=== PATIENT | female | born 1975 | race Caucasian/White ===

== ENCOUNTER → 2020-09-08 08:20 | Outpatient (BNVA) | payer MEDICAID, SELFPAY | PROVIDERS: PCP Family Medicine; Visit Provider Dietitian, Registered | DX: Z76.89 Persons encountering health services in other specified circumstances (principal) ==

== ENCOUNTER → 2020-09-18 07:35 | Outpatient (BNVA) | payer MEDICAID, SELFPAY | PROVIDERS: PCP Family Medicine; Referring Provider Family Medicine; Visit Provider Dietitian, Registered | DX: Z76.89 Persons encountering health services in other specified circumstances (principal) ==

== ENCOUNTER → 2020-10-09 08:14 | Outpatient (BNVA) | payer MEDICAID, SELFPAY | PROVIDERS: PCP Family Medicine; Visit Provider Dietitian, Registered | DX: Z76.89 Persons encountering health services in other specified circumstances (principal) ==

== ENCOUNTER 2020-11-07 15:21 | Outpatient (REF) | payer MEDICAID, SELFPAY ==
[2020-11-07 15:52] LABS: MANUAL DIFF FLAG NO
[2020-11-07 16:03] LABS: Basophils Absolute Auto 0.1 X10*3/uL (0.0-0.2); Basophils Percent Auto 1.2 % (0-2); Eosinophils Absolute Auto 0.2 X10*3/uL (0.0-0.4); Eosinophils Percent Auto 2.9 % (0-4); Hematocrit 44.8 % (37-47); Hemoglobin 14.8 g/dl (12.0-16.0); Imm Gran Abs Auto 0.02 X10*3/uL (0.00-0.03); Imm Gran Pct Auto 0.3 % (0.0-0.4); Lymphocytes Absolute Auto 1.9 X10*3/uL (1.2-4.9); Lymphocytes Percent Auto 31.3 % (20-40); Mean Corpuscular Hemoglobin 31.7 pg (27.0-33.0); Mean Corpuscular Volume 95.9 fL (80-98); Mean Platelet Volume 10.5 fL (9.4-12.3); Monocytes Absolute Auto 0.4 X10*3/uL (0.1-1.2); Monocytes Percent Auto 6.6 % (2-11); Neutrophils Absolute Auto 3.4 X10*3/uL (2.0-8.3); Neutrophils Percent Auto 57.7 % (45-73); Platelet Count 318 X10*3/uL (160-400); Red Blood Count 4.67 X10*6/uL (4.20-5.50); Red Cell Distribution Width 12.5 % (11.0-16.0); White Blood Count 5.9 X10*3/uL (4.8-10.8)
[2020-11-07 16:11] LABS: Estimated Average Glucose 94 mg/dL; Hemoglobin A1c % 4.9 %
[2020-11-07 16:25] LABS: Alanine Aminotransferase 69 U/L (0-31); Albumin Level 4.6 g/dL (3.5-5.0); Alkaline Phosphatase 61 U/L (39-117); Anion Gap 11 (12-20); Aspartate Amino Transferase 51 U/L (5-31); Blood Urea Nitrogen 11 mg/dL (9-16); C Reactive Protein 0.03 mg/dL (< or = 0.50); Calcium 9.4 mg/dL (8.4-10.2); Carbon Dioxide 27 mmol/L (22-29); Chloride 104 mmol/L (96-108); Cholesterol 169 mg/dL; Estimated Glomerular Filt Rate > 60; Glucose Random 96 mg/dL (60-115); HDL Cholesterol 48 mg/dL; Iron 120 mcg/dL (30-160); LDL Cholesterol Calculated 108 mg/dl; Percent Iron Saturation 43 % (15-50); Potassium 4.4 mmol/l (3.3-5.1); Sodium 138 mmol/L (135-145); Total Iron Binding Capacity 281 mcg/dL (228-428); Total Protein 7.6 g/dL (6.5-8.0); Triglycerides 65 mg/dL; Unsaturated Iron Binding 161 ug/dL
[2020-11-07 16:46] LABS: Ferritin 133 ng/mL (10-250); TSH reflex Free T4 1.16 mIU/mL (0.32-4.0); Vitamin D 25-OH Total 22.5 ng/mL (>30)
[2020-11-07 16:58] LABS: Folate 16.6 ng/mL (> or = 4.0); Vitamin B12 1014 pg/mL (200-900)
[2020-11-08 18:37] LABS: Insulin Level Total 2.7 uIU/mL
[2020-11-09 16:33] LABS: PTHI 56 pg/mL (14-64)
[2020-11-10 04:42] LABS: Zinc 97 mcg/dL (60-130)
[2020-11-11 12:13] LABS: Vitamin B1 44 nmol/L (8-30)
[2020-11-11 16:07] LABS: Vitamin A 41 mcg/dL (38-98)
== END 2020-11-07 15:22 | disposition home or self-care (01) ==
LOC: HO.LAB 15:21
PROVIDERS: Visit Provider Physician Assistant
DX: E66.9 Obesity, unspecified (principal); E06.3 Autoimmune thyroiditis; E16.2 Hypoglycemia, unspecified; Z98.84 Bariatric surgery status; Z90.3 Acquired absence of stomach [part of]; Z98.890 Other specified postprocedural states; Z68.35 Body mass index [BMI] 35.0-35.9, adult
CPT/HCPCS: 36415; 80053; 80061; 82306; 82607; 82728; 82746; 83036; 83525; 83540; 83970; 84425; 84443; 84590; 84630; 85025; 86140

== ENCOUNTER → 2020-11-10 08:53 | Outpatient (BNVA) | payer MEDICAID, SELFPAY | PROVIDERS: PCP Family Medicine; Visit Provider Physician Assistant ==

== ENCOUNTER 2021-01-17 16:10 | Outpatient (REF) | payer MEDICAID, SELFPAY ==
--- NOTE | ~2021-01-17 | MR_ITS ---
EXAMINATION: MR BRAIN WITHOUT AND WITH CONTRAST CLINICAL INFORMATION: Frontal lobe pain and neck stiffness with symptoms 2-3 weeks. Seizure. Benign intracranial hypertension. COMPARISON: MRI brain 06/01/2019, 12/29/2012. TECHNIQUE: Multiplanar, multisequence MRI of the brain was obtained before and after the intravenous administration of 7 mL Gadavist. Unenhanced and IV contrast-enhanced seizure protocol images were obtained. FINDINGS: 5 mm inferior ectopia of the cerebellar tonsils relative to the foramen magnum is noted. The ventricles and sulci are otherwise normal in size and configuration. The corpus callosum is normal in appearance. Convex inward configuration of the superior margin of the pituitary is noted, unchanged compared with 06/01/2019. No definitive flattening of the heads of the optic discs is noted. No enlargement of Meckel's cave is visualized. The sella turcica measures 15 mm in AP dimension and the craniocaudal dimension of the pituitary is approximately 2 mm. Mucosal thickening and retained secretions are noted within a right lateral sphenoid air cell, similar to findings noted on the 06/01/2019 examination. No abnormal enhancement of the brain parenchyma is visualized. MR/MR head/brain wo/w con IMPRESSION: 1. Convex inward configuration of the superior margin of the pituitary (also known as an empty sella configuration of the pituitary). This finding may be a benign, asymptomatic configuration of the pituitary. This finding may also be associated with idiopathic intracranial hypertension. However, no additional imaging stigmata of elevated intracranial pressures are noted. 2. Borderline Chiari I malformation. 5 mm inferior ectopia of the cerebellar tonsils is present. Minimal Chiari malformations with 4-7 mm of inferior cerebellar ectopia may be asymptomatic. 3. Mucosal thickening and retained secretions within a right lateral sphenoid air cell, similar to findings noted on the MRI of the brain examination from 06/01/2019, which may represent chronic sphenoid sinusitis.
[2021-01-17 17:22] LABS: Blood Urea Nitrogen 12 mg/dL (9-16); Estimated Glomerular Filt Rate > 60
== END 2021-01-17 16:11 | disposition home or self-care (01) ==
LOC: HO.MRI 16:10
PROVIDERS: PCP Family Medicine; Visit Provider Psychiatry & Neurology Neurology
DX: R56.9 Unspecified convulsions (principal); G93.2 Benign intracranial hypertension
CPT/HCPCS: 36415; 70553; 82565; 84520; A9585

== ENCOUNTER → 2021-06-13 08:18 | Outpatient (BNVA) | payer MEDICAID, SELFPAY | PROVIDERS: PCP Family Medicine; Visit Provider Physician Assistant ==

== ENCOUNTER → 2021-11-28 08:29 | Outpatient (BNVA) | payer MEDICAID, SELFPAY | PROVIDERS: PCP Family Medicine; Visit Provider Physician Assistant ==

== ENCOUNTER 2024-03-23 14:22 | Outpatient (AMB) | payer OTHER, SELFPAY ==
--- NOTE | 2024-03-23 14:26 | MHC.OFFVIS ---
Vital Signs 03/23/24 14:28 Height 5 ft 7 in Weight 154 lb BMI 24.1 BP 97/58 L Blood Pressure Location Lt brachial Position Sitting Pulse 78 Intake Visit Reasons: Colonoscopy Screening Intake Note: Patient 2nd pre colonoscopy consult. Patient cc: between diarrhea and constipation. Denies any GI issues. 1st colonoscopy was [address] Fernando. 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 Accompanied by: Self / Same As Patient Allergies levofloxacin Allergy (Intermediate, Verified 03/23/24 14:28) sob penicillin G [PENICILLIN G] Allergy (Unknown, Verified 03/23/24 14:25) RASH, HIVES penicillin V Adverse Reaction (Unknown, Verified 03/23/24 14:25) redness and itching trazodone Adverse Reaction (Unknown, Verified 03/23/24 14:25) non coherent Pt states No known food Allerg Allergy (Unknown, Uncoded 03/23/24 14:25) Unknown Medication List - Last Reconciled 03/23/24 by Nancy Lebron PA-C alprazolam 0.25 mg PO TID atorvastatin 40 mg PO DAILY blood sugar diagnostic (Freestyle InsuLinx Test Strips) As directed blood sugar diagnostic (FreeStyle Lite Strips) As directed ergocalciferol (vitamin D2) 20 mcg PO DAILY estradiol 1 patch transdermal 2XW lactulose 20 grams PO BID lancets (FreeStyle Lancets) As directed lancets (FreeStyle Lancets) As directed rnoadnuk-emc-abhg-vitamin K 18 mg iron-25 mcg tabs PO omeprazole 40 mg PO QAM progesterone micronized 400 mg PO DAILY thyroid (pork) ([place] Thyroid) 60 mg PO DAILY HPI Comments Details: A very pleasant 48 y/o female s/p gastric bypass referred screening colonoscopy -she feels well- lost greater than 100 lb She is taking omeprazole 40 mg daily for acid reflux for many years, however she has recurring symptoms if she misses a dose. Last [address] Gee- Alternating stool pattern No respiratory or cardiac issues No nausea, vomiting, abdominal fever or chills PFSH Medical History (Updated 03/25/24 @ 11:57 by Nancy Lebron PA-C) Carpal tunnel syndrome of right wrist Chiari malformation IBS (irritable bowel syndrome) Hypercholesteremia Asthma Intracranial hypertension Surgical History History of thyroglossal duct cyst removal History of salpingo-oophorectomy Hx laparoscopic cholecystectomy Gastric bypass status for obesity Social History (Updated 03/23/24 @ 14:37 by Nancy Lebron PA-C) Household Members Other:: single-3 kids Comment: social Patient Tobacco Use Status: Former Tobacco user Review of Systems Const All systems reviewed & are unremarkable except as noted in HPI and below Card Denies chest pain and Denies dyspnea Resp Denies dyspnea GI Denies abdominal pain and Reports heartburn Physical Exam Vital Signs: Last Vital Signs Pulse 78 03/23/24 14:28 BP 97/58 L 03/23/24 14:28 BMI result Body Mass Index 24.1 Const General: cooperative, healthy appearing, comfortable and no acute distress Orientation/consciousness: patient oriented x3 Limitations: no limitations Eyes Sclerae: sclerae normal Resp Effort & Inspection: normal respiratory effort and able to speak in complete sentences Auscultation: clear to auscultation bilaterally, no rales, no rhonchi and no wheezes Cardio Rate: regular rate Rhythm: regular rhythm Heart sounds: S1 normal heart sound present and S2 normal heart sound present GI Palpation (GI): Soft to palpation and nontender Auscultation: normal bowel sounds Skin General skin exam: no rashes or lesions noted Neuro General: patient oriented x3 Extrem General: Yes full ROM Psych Appearance: grossly normal and well kempt Mental Status: mental status grossly normal Speech and movement: Normal speech and movement present Affect: normal affect Attitude: cooperative Thought process: Normal thought process present Thought content: Normal thought content present Insight: Good insight present (Psych) Judgement: Good judgement present (Psych) Assessment & Plan Assessment & Plan (1) Encounter for screening colonoscopy: Comment: Index screening colonoscopy Code(s): Z12.11 - Encounter for screening for malignant neoplasm of colon Category: Medical Plan: Index screening colonoscopy (2) Acid reflux: Comment: Reflux precautions Continue PPI EGD-r/o pud, nonulcer dyspepsia, esophagitis Code(s): K21.9 - Gastro-esophageal reflux disease without esophagitis Category: Medical Plan EGD/colon-mg prep Orders: Orders EGD/[place] Combo - GI Use Only 03/23/24 K21.9 - Gastro-esophageal reflux disease without esophagitis, Z12.11 - Encounter for screening for malignant neoplasm of colon, Z98.84 - Bariatric surgery status Medications: New bisacodyl (Dulcolax (bisacodyl)) Day before procedure @ 12 noon Take 4 tablets by mouth followed by large glass of water 20 mg (4 x 5 mg) PO ONCE PRN 4 tabs 0RF colonoscopy prep 1 day Z12.11 - Encounter for screening for malignant neoplasm of colon polyethylene glycol 3350 (Miralax) Take as directed by mouth the day before your procedure. 238 grams PO ONCE PRN 238 grams 0RF laxative effect 1 day Patient Instructions: EGD colonoscopy MiraLax Gatorade prep, reviewed literature Reflux precautions Continue PPI Encouraged to call questions or concerns Coding Level of Care Code New Pt Level 3 (05186) Diagnoses Encounter for screening colonoscopy Z12.11 Acid reflux K21.9 Time Spent (min) 30
[2024-03-23 14:28] VITALS: BP 97/58; PULSE 78; BMI 24.1
== END 2024-03-23 16:16 | disposition home or self-care (01) ==
PROVIDERS: PCP Family Medicine; Visit Provider Physician Assistant
DX: K21.9 Gastro-esophageal reflux disease without esophagitis (principal); Z01.818 Encounter for other preprocedural examination; Z12.11 Encounter for screening for malignant neoplasm of colon
CPT/HCPCS: 99203

== ENCOUNTER → 2024-03-23 14:22 | Outpatient (BNVA) | payer OTHER, SELFPAY | PROVIDERS: PCP Family Medicine; Visit Provider Physician Assistant ==